=== PATIENT | male | born 1985 | race Caucasian/White ===

== ENCOUNTER 2024-12-29 03:10 | Emergency (ER) | payer MEDICAID ==
[~2024-12-29] VITALS: Ht 175.3 cm; Wt 96.0 kg
[2024-12-29 03:12] VITALS: BP 140/90; PULSE 65; RESP 16; TEMP 36.9; O2SAT 98
[2024-12-29] MEDS ORDERED: KETOROLAC 30MG/ML VIAL IM STA (04:01)
[2024-12-29] MEDS ORDERED: ONDANSETRON HCL 4MG/2ML INJ IV STA (04:01)
[2024-12-29] MEDS ORDERED: NITROGLYCERIN 0.4MG TABLET SL SL PRN (04:15)
[2024-12-29] MEDS ORDERED: ASPIRIN 81MG TABLET PO ONE (04:15)
[2024-12-29 04:27] LABS: BASOPHILS % 0.5 % (0.0-2.0); EOSINOPHILS % 3.1 % (0.0-5.0); HEMATOCRIT. 43.1 % (42.0-52.0); HEMOGLOBIN. 15.1 g/dL (14.0-18.0); LYMPHOCYTES % 20.8 % (20.0-50.0); MEAN CORPUSCULAR HEMOGLOBIN 33.2 pg (28.0-32.0); MEAN CORPUSCULAR VOLUME 94.8 fL (80.0-94.0); MEAN PLATELET VOLUME 8.7 fl (7.4-10.4); MONOCYTES % 10.1 % (2.0-8.0); NEUTROPHILS % 65.5 % (40.0-76.0); PLATELET 352 x1000/uL (130-400); RED BLOOD CELL COUNT 4.55 mill/uL (4.7-6.1); RED CELL DISTRIBUTION WIDTH 13.8 % (11.6-14.6); WHITE BLOOD COUNT 11.5 x1000/uL (4.5-11.0)
[2024-12-29 04:29] LABS: CHLORIDE 108 mEq/L (98-107); POTASSIUM 3.9 mEq/L (3.5-5.1); SODIUM 140 mEq/L (136-145)
[2024-12-29 04:30] LABS: CALCIUM 9.3 mg/dL (8.7-10.4); CARBON DIOXIDE 25 mEq/L (21-32)
[2024-12-29 04:35] LABS: GLUCOSE 97 mg/dL (70-105); UREA NITROGEN BLOOD 18 mg/dL (9-23)
[2024-12-29 04:37] LABS: ALANINE AMINOTRANSFERASE 50 IU/L (10-49); ALBUMIN 4.5 g/dL (3.2-4.8); ASPARTATE AMINOTRANSFERASE 33 IU/L (<34); BILIRUBIN DIRECT 0.2 mg/dL (<=3.0); BILIRUBIN TOTAL 0.7 mg/dL (0.1-1.0); PROTEIN TOTAL 7.1 g/dL (6.0-8.3)
[2024-12-29 04:39] LABS: TROPONIN I HIGH SENSITIVITY < 4 ng/L (3.0-53)
== END 2024-12-29 04:23 | disposition left against medical advice (07) ==
LOC: ER 03:10
DX: R07.89 Other chest pain (principal); I10 Essential (primary) hypertension; Z88.5 Allergy status to narcotic agent
CPT/HCPCS: 36415; 80048; 80076; 83880; 84484; 85025; 99283